=== PATIENT | female | born 1990 | race Caucasian/White ===

== ENCOUNTER 2022-04-12 07:50 | Outpatient (CLI) | payer BC, SELFPAY ==
--- NOTE | 2022-04-12 08:00 | CRLHL7_ITS ---
For Patients: As a result of the Century Cures Act, medical imaging exams and procedure reports are released immediately into your electronic medical record. You may view this report before your referring provider. If you have questions, please contact your health care provider. INDICATION: Sinusitis. TECHNIQUE: Noncontrast CT images acquired through the paranasal sinuses. COMPARISON: CT sinus 05/02/2010. FINDINGS: Postsurgical changes secondary to interval endoscopic sinus surgery including bilateral maxillary antrostomy, bilateral uncinectomy, bilateral partial ethmoidectomy, and septoplasty. No air-fluid levels to suggest acute sinusitis. Minimal mucosal thickening in the maxillary sinuses has significantly improved. The maxillary sinus outflow tracts are widely patent. The frontal sinuses and frontal recesses are clear. Minimal mucosal thickening in the ethmoid air cells. Improved ggio-as-kwocvvzb left and worsening zgab-rd-fecowzrf right sphenoid sinus mucosal thickening. The sphenoethmoidal recesses are opacified. Midline nasal septum. No nasal cavity masses. The mastoid air cells are clear. IMPRESSION: 1. Postsurgical changes secondary to interval endoscopic sinus surgery. Improved aeration of the maxillary sinuses. No air-fluid levels to suggest acute sinusitis. 2. Improved fmli-hx-umcxxocv left and worsening zjtb-ds-yfowncjb right sphenoid sinus mucosal thickening. The sphenoethmoidal recesses are opacified. Please note that all CT scans at this facility use dose modulation, iterative reconstruction, and/or weight-based dosing when appropriate to reduce radiation dose to as low as reasonably achievable. Dictated by Clint Mclain MD @ 04/12/2022 10:19:41 AM (Electronically Signed)
== END 2022-04-12 07:51 | disposition home or self-care (01) ==
LOC: CT 07:52
PROVIDERS: PCP Family Medicine; Visit Provider Otolaryngology
DX: J32.9 Chronic sinusitis, unspecified (principal); J32.0 Chronic maxillary sinusitis; J32.3 Chronic sphenoidal sinusitis
CPT/HCPCS: 70486